=== PATIENT | male | born 1955 ===

== ENCOUNTER 2018-09-02 10:16 | Outpatient (CLI) | payer BC ==
--- NOTE | 2018-09-02 11:47 | RAD ---
RIGHT HAND THREE VIEWS: History: 62-year-old male with history of osteoarthritis. Bump on distal fourth metacarpal on palm side of peterson d. FINDINGS: There are some degenerative and mild osteoarthrosis changes including the triscaphe region as well as the trapezium first metacarpal joint. No acute fracture or dislocation or other significant acute os seous abnormality. IMPRESSION: Degenerative and osteoarthrosis changes without fracture or dislocation. If the patient has a suspicious palpable finding, follow up MRI with and without IV contrast might be considered. POS: [facility]IV[facility]
--- NOTE | 2018-09-02 11:49 | RAD ---
RIGHT MIDDLE FINGER THREE VIEWS: History: 62-year-old male with history of third carpal osteoarthritis. Bump in proximal aspect of third digit with marker placed at the area of concern. FINDINGS: No fracture or dislocation or other significant osseous abnormality. Given a soft tissue palpable fin ding, consider follow up MRI with and without IV contrast for further assessment. IMPRESSION: No fracture, dislocation, or other osseous abnormality. Consider follow up MRI with and without IV co ntrast to evaluate a palpable soft tissue finding. POS: VIVIAN
== END 2018-09-02 10:17 | disposition home or self-care (01) ==
LOC: BICRAD 10:16
PROVIDERS: ATTEND Family Medicine
DX: M19.041 Primary osteoarthritis, right hand (principal)